=== PATIENT | male | born 1945 | race Caucasian/White ===

== ENCOUNTER 2017-11-02 07:43 | Inpatient (IN) | payer MEDICARE ==
[~2017-11-02] VITALS: Ht 182.9 cm; Wt 89.9 kg
[2017-11-02] VITALS (12 sets, daily range): BP systolic 100–180; BP diastolic 60–100
[2017-11-02 08:00] LABS: BASOPHILS % (AUTO) 0.3 % (0.0-5.0); EOSINOPHILS % (AUTO) 1.6 % (0.0-8.0); HEMATOCRIT 51.3 % (42-54); LYMPHOCYTES % (AUTO) 17.8 % (21.0-51.0); MEAN CORPUSCULAR HEMOGLOBIN 32.1 pg (27.0-33.0); MEAN CORPUSCULAR HGB CONC 35.2 g/dL (32.0-36.0); MEAN CORPUSCULAR VOLUME 91.2 fL (79-99); NEUTROPHILS % (AUTO) 71.3 % (40.0-77.0); NUCLEATED RED BLOOD CELLS 0.1 % (0.0-0.19); PLATELET COUNT (AUTO) 165 K/uL (130-400); RED BLOOD CELL COUNT(AUTO) 5.63 MIL/uL (4.50-6.20); RED CELL DISTRIBUTION WIDTH 13.6 % (11.0-15.5); WHITE BLOOD COUNT (AUTO) 7.6 K/uL (4.8-10.8)
[2017-11-02 08:17] LABS: PARTIAL THROMBOPLASTIN TIME 26.1 SEC (26.3-35.5); PROTHROMBIN TIME 10.5 SEC (9.6-11.6)
[2017-11-02 08:22] LABS: CREATININE 1.2 mg/dL (0.5-1.5); POTASSIUM 4.3 mmol/L (3.5-5.1)
[2017-11-02 08:36] LABS: ALBUMIN 4.5 g/dL (3.5-5.0); BILIRUBIN,TOTAL 1.7 mg/dL (0.2-1.0); CREATINE KINASE MB 31.2 ng/mL (0.5-3.6); TOTAL PROTEIN, SERUM 8.5 g/dL (6.0-8.3)
[2017-11-02] MEDS ORDERED: ASPIRIN 325 MG TABLET ONE (08:39)
[2017-11-02] MEDS ORDERED: IOPAMIDOL-370 100 ML VIAL IV ONE ×2 (10:48→10:58)
[2017-11-02] MEDS ORDERED: BIVALIRUDIN 250 MG/VIAL IV ONE (10:48)
[2017-11-02] MEDS ORDERED: ISOVUE-370 50ML VIAL IV ONE (10:49)
[2017-11-02] MEDS ORDERED: LIDOCAINE HCL 2% 20ML ONE (10:49)
[2017-11-02] MEDS ORDERED: NITROGLYCERIN 5 MG/ML 10 ML VIAL IV ONE (10:58)
[2017-11-02] MEDS ORDERED: NITROGLYCERIN 50 MG/D5% WATER 1 BOT ONE (12:25)
[2017-11-02] MEDS ORDERED: MORPHINE SULFATE 2 MG/ML 1ML SYG ONE (12:30)
[2017-11-02] MEDS ORDERED: METOPROLOL TARTRATE 1 MG/ML 5ML VIAL IV ONE (12:30)
[2017-11-02] MEDS ORDERED: ATROPINE SULFATE 0.1 MG/ML 10 ML SYG IVP ONE (12:34)
[2017-11-02] MEDS ORDERED: TICAGRELOR 90 MG TABLET ONE (12:40)
[2017-11-02] MEDS ORDERED: VERAPAMIL HCL 2.5 MG/ML VIAL IVP ONE (12:43)
[2017-11-02] MEDS ORDERED: ADENOSINE 3 MG/ML 2ML VIAL IV ONE (12:46)
[2017-11-02] MEDS ORDERED: SODIUM CHLORIDE 0.9% 1000ML 1,000 ML IV SCH (13:09)
[2017-11-02] MEDS ORDERED: ONDANSETRON HCL 4 MG/2 ML VIAL IVP SCH (13:15)
[2017-11-02] MEDS ORDERED: MORPHINE SULFATE 5 MG/ML VIAL IVP SCH ×2 (13:15)
[2017-11-02] MEDS ORDERED: LOSARTAN 50 MG TABLET PO SCH (13:15)
[2017-11-02] MEDS ORDERED: ACETAMINOPHEN-CODEINE 300/30MG TAB PO PRN (13:15)
[2017-11-02] MEDS ORDERED: NITROGLYCERIN 50 MG/D5% WATER 1 BOT IV PRN (13:15)
[2017-11-02] MEDS ORDERED: [UNRECOGNIZED DRUG - CODE] IM (14:35)
[2017-11-02] MEDS: CARVEDILOL 6.25 MG TABLET PO SCH ×2 (14:35→23:06)
[2017-11-02] MEDS: TICAGRELOR 90 MG TABLET PO SCH (20:26)
[2017-11-02] MEDS: ATORVASTATIN CALCIUM 40 MG TABLET PO SCH (20:26)
[2017-11-02 21:22] LABS: CREATINE KINASE MB 55.6 ng/mL (0.5-3.6)
[2017-11-02 21:23] LABS: TROPONIN I 8.38 ng/mL (0.00-0.06)
[2017-11-03] VITALS (15 sets, daily range): BP systolic 88–128; BP diastolic 46–67
[2017-11-03 04:01] LABS: HEMATOCRIT 43.7 % (42-54); MEAN CORPUSCULAR HEMOGLOBIN 32.3 pg (27.0-33.0); MEAN CORPUSCULAR HGB CONC 35.7 g/dL (32.0-36.0); MEAN CORPUSCULAR VOLUME 90.3 fL (79-99); NUCLEATED RED BLOOD CELLS 0.1 % (0.0-0.19); PLATELET COUNT (AUTO) 155 K/uL (130-400); RED BLOOD CELL COUNT(AUTO) 4.83 MIL/uL (4.50-6.20); RED CELL DISTRIBUTION WIDTH 13.1 % (11.0-15.5); WHITE BLOOD COUNT (AUTO) 9.2 K/uL (4.8-10.8)
[2017-11-03 04:32] LABS: CREATINE KINASE MB 43.8 ng/mL (0.5-3.6); CREATININE 1.3 mg/dL (0.5-1.5); POTASSIUM 3.9 mmol/L (3.5-5.1)
[2017-11-03 04:35] LABS: TROPONIN I 8.14 ng/mL (0.00-0.06)
[2017-11-03] MEDS ORDERED: CARVEDILOL 3.125 MG TABLET PO SCH (09:15)
[2017-11-03] MEDS: TICAGRELOR 90 MG TABLET PO SCH ×2 (09:48→19:38)
[2017-11-03] MEDS: ASPIRIN 81MG TAB.CHEW PO SCH (09:48)
[2017-11-03] MEDS: PANTOPRAZOLE SODIUM 40 MG TABLET.DR PO SCH (09:50)
[2017-11-03] MEDS ORDERED: BISACODYL 5 MG TABLET.DR PO SCH (11:00)
[2017-11-03] MEDS: DOCUSATE SODIUM 100 MG CAP PO SCH ×2 (11:23→19:38)
[2017-11-03] MEDS: ATORVASTATIN CALCIUM 40 MG TABLET PO SCH (19:38)
[2017-11-03] MEDS: METOPROLOL TARTRATE 25 MG TAB PO SCH (19:39)
[2017-11-04] VITALS (7 sets, daily range): BP systolic 108–126; BP diastolic 55–87
[2017-11-04] MEDS: METOPROLOL TARTRATE 25 MG TAB PO SCH ×2 (09:52→21:55)
[2017-11-04] MEDS: DOCUSATE SODIUM 100 MG CAP PO SCH ×2 (09:52→21:55)
[2017-11-04] MEDS: TICAGRELOR 90 MG TABLET PO SCH ×2 (09:52→21:55)
[2017-11-04] MEDS: ASPIRIN 81MG TAB.CHEW PO SCH (09:52)
[2017-11-04] MEDS: LISINOPRIL 2.5 MG TABLET PO SCH (09:52)
[2017-11-04] MEDS: PANTOPRAZOLE SODIUM 40 MG TABLET.DR PO SCH (09:52)
[2017-11-04] MEDS: POLYETHYLENE GLYCOL 3350 17 GM POWD.PACK PO SCH (09:53)
[2017-11-04] MEDS: ATORVASTATIN CALCIUM 40 MG TABLET PO SCH (21:55)
[2017-11-05 03:33] VITALS: BP 122/70
[2017-11-05 04:21] LABS: HEMATOCRIT 40.3 % (42-54); MEAN CORPUSCULAR HEMOGLOBIN 32.4 pg (27.0-33.0); MEAN CORPUSCULAR HGB CONC 36.4 g/dL (32.0-36.0); MEAN CORPUSCULAR VOLUME 89.2 fL (79-99); PLATELET COUNT (AUTO) 144 K/uL (130-400); RED BLOOD CELL COUNT(AUTO) 4.52 MIL/uL (4.50-6.20); RED CELL DISTRIBUTION WIDTH 13.3 % (11.0-15.5); WHITE BLOOD COUNT (AUTO) 5.9 K/uL (4.8-10.8)
[2017-11-05 04:35] LABS: CREATININE 1.3 mg/dL (0.5-1.5); POTASSIUM 3.9 mmol/L (3.5-5.1)
[2017-11-05 07:00] VITALS: BP 124/61
[2017-11-05] MEDS: ASPIRIN 81MG TAB.CHEW PO SCH (08:07)
[2017-11-05] MEDS: POLYETHYLENE GLYCOL 3350 17 GM POWD.PACK PO SCH (08:07)
[2017-11-05] MEDS: DOCUSATE SODIUM 100 MG CAP PO SCH (08:07)
[2017-11-05] MEDS: METOPROLOL TARTRATE 25 MG TAB PO SCH (08:07)
[2017-11-05] MEDS: PANTOPRAZOLE SODIUM 40 MG TABLET.DR PO SCH (08:07)
[2017-11-05] MEDS: LISINOPRIL 2.5 MG TABLET PO SCH (08:07)
[2017-11-05] MEDS: TICAGRELOR 90 MG TABLET PO SCH (08:07)
[2017-11-05] MEDS ORDERED: LISI2.5T2 PO (09:45)
[2017-11-05] MEDS ORDERED: ATOR40TA69 PO (09:45)
[2017-11-05] MEDS ORDERED: TICA90TA PO (09:45)
[2017-11-05] MEDS ORDERED: METO25 PO (09:45)
[2017-11-05] MEDS ORDERED: ASPI-1005 PO (09:45)
[2017-12-04] MEDS ORDERED: TESTOSTERONE CYPIONATE 200 MG IM SCH (09:00)
[2017-12-05] MEDS ORDERED: TESTOSTERONE CYPIONATE 200 MG PO SCH (09:00)
== END 2017-11-05 10:52 | disposition home or self-care (01) | DRG 246 ==
LOC: EDH 07:43 → EDHIP 12:42 → OBSVTOIN 12:42 → 2BH 14:14 → 2CH 19:53 → 2AH 11-03 12:58
PROVIDERS: ADMIT Family Medicine; ATTEND Family Medicine
PROC: B2151ZZ Fluoroscopy of Left Heart using Low Osmolar Contrast (ICD-10-PCS; principal; 2017-11-02)
PROC: 027034Z Dilation of Coronary Artery, One Artery with Drug-eluting Intraluminal Device, Percutaneous Approach (ICD-10-PCS; 2017-11-02)
PROC: B2111ZZ Fluoroscopy of Multiple Coronary Arteries using Low Osmolar Contrast (ICD-10-PCS; 2017-11-02)
PROC: 4A023N7 Measurement of Cardiac Sampling and Pressure, Left Heart, Percutaneous Approach (ICD-10-PCS; 2017-11-02)
PROC: 3E073GC Introduction of Other Therapeutic Substance into Coronary Artery, Percutaneous Approach (ICD-10-PCS; 2017-11-02)
DX: I21.4 Non-ST elevation (NSTEMI) myocardial infarction (principal); I50.41 Acute combined systolic (congestive) and diastolic (congestive) heart failure; I95.9 Hypotension, unspecified; I11.0 Hypertensive heart disease with heart failure; I25.110 Atherosclerotic heart disease of native coronary artery with unstable angina pectoris; E78.5 Hyperlipidemia, unspecified; N40.0 Benign prostatic hyperplasia without lower urinary tract symptoms; I24.9 Acute ischemic heart disease, unspecified; K29.70 Gastritis, unspecified, without bleeding; K58.9 Irritable bowel syndrome, unspecified; Z88.1 Allergy status to other antibiotic agents; Z82.49 Family history of ischemic heart disease and other diseases of the circulatory system
CPT/HCPCS: 36415; 71045; 80048; 80053; 80061; 82550; 82553; 83874; 83880; 84484; 85025; 85027; 85610; 85730; 93005; 93458; 99291; A4357; C1725; C1760; C1769; C1887; C1894; C9600; J0153; J0461; J0583; J1644; J3490; J7030; Q9967

== ENCOUNTER → 2020-08-13 | Outpatient (CLI) | payer MEDICARE ==
[~2020-08-13] MED LIST: ASPI-1005 PO; ATOR40TA69 PO; LISI2.5T2 PO; METO25 PO; REGADENOSON 0.4 MG/5 ML PF SYG IVP SCH; TICA90TA PO; [UNRECOGNIZED DRUG - CODE] IM
== END | disposition home or self-care (01) ==
LOC: SHCH 08:14
PROVIDERS: ATTEND Internal Medicine Cardiovascular Disease
DX: I25.2 Old myocardial infarction (principal)
CPT/HCPCS: 78452; 93017; 96374; A9500 ×2; J2785

== ENCOUNTER 2024-08-31 07:47 | Emergency (ER) | payer MEDICARE ==
[~2024-08-31] VITALS: Ht 182.9 cm; Wt 86.2 kg
[~2024-08-31 07:47] MED LIST changes: +LISI2.5T13 PO; -LISI2.5T2 PO; -REGADENOSON 0.4 MG/5 ML PF SYG IVP SCH
--- NOTE | 2024-08-31 08:06 | EKG ---
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
[2024-08-31 08:18] LABS: BASOPHILS # (AUTO) 0.02 K/uL (0.00-0.20); BASOPHILS % (AUTO) 0.2 % (0.0-5.0); EOSINOPHILS # (AUTO) 0.12 K/uL (0.00-0.70); EOSINOPHILS % (AUTO) 1.5 % (0.0-8.0); HEMATOCRIT 42.5 % (42-54); IMMATURE GRANULOCYTE ABSOLUTE 0.02 K/uL (0-1); LYMPHOCYTES # (AUTO) 0.7 K/uL (1.0-4.8); MEAN CORPUSCULAR HEMOGLOBIN 31.4 pg (27.0-33.0); MEAN CORPUSCULAR HGB CONC 34.6 g/dL (32.0-36.0); MEAN CORPUSCULAR VOLUME 90.8 fL (79-99); MONOCYTES # (AUTO) 0.6 K/uL (0.1-1.0); MONOCYTES % (AUTO) 7.9 % (3.0-13.0); NEUTROPHILS # (AUTO) 6.6 K/uL (1.8-7.7); NEUTROPHILS % (AUTO) 82.2 % (40.0-77.0); PLATELET COUNT (AUTO) 117 K/uL (130-400); RED BLOOD CELL COUNT(AUTO) 4.68 MIL/uL (4.50-6.20); RED CELL DISTRIBUTION WIDTH 11.9 % (11.0-15.5); WHITE BLOOD COUNT (AUTO) 8.1 K/uL (4.8-10.8)
[2024-08-31 08:24] LABS: CREATININE 1.1 mg/dL (0.5-1.3); POTASSIUM 4.4 mmol/L (3.5-5.1)
[2024-08-31 08:29] LABS: ALBUMIN 3.7 g/dL (3.5-5.0); BILIRUBIN,DIRECT 0.1 mg/dL (0.0-0.3); BILIRUBIN,TOTAL 1.1 mg/dL (0.2-1.0); TOTAL PROTEIN, SERUM 6.7 g/dL (6.0-8.3)
[2024-08-31 08:41] LABS: B-TYPE NATRIURETIC PEPTIDE 21 pg/mL (0-100)
--- NOTE | 2024-08-31 08:41 | HMCIMG ---
CHEST 1VW HISTORY: Chest pain COMPARISON: 08/20/2023 FINDINGS: A frontal projection of the chest was obtained. No acute pulmonary infiltrates is seen. The heart is borderline enlarged. Degenerative changes are seen. Aortic calcifications are seen. IMPRESSION: 1. No acute pulmonary infiltrate is seen.
--- NOTE | 2024-08-31 09:26 | ERN ---
ED Note History of Present Illness Stated Complaint: CHEST PAIN X 2 DAYS Chief Complaint: Chest Pain Time Seen by MD: 07:48 Dictation: 79-year-old male presents to the ED for evaluation of chest pain onset 2 days ago. Patient reports pressure like pain, but denies any SOB or other associated symptoms at this time. Patient has history of PR and cardiac stents. Allergies: Coded Allergies: clarithromycin (Unverified Allergy, Unknown, 11/02/17) doxycycline (Unverified Allergy, Unknown, 11/02/17) Home Meds Active Scripts Atorvastatin Calcium (LIPITOR) 40 Mg Tablet, 40 MG PO HS, #30 TAB Prov:SELENE LOCKE MD 11/05/17 Lisinopril (Lisinopril) 2.5 Mg Tablet, 2.5 MG PO DAILY, #30 TAB Prov:SELENE LOCKE MD 11/05/17 Ticagrelor (Brilinta) 90 Mg Tablet, 90 MG PO BID, #60 TAB Prov:SELENE LOCKE MD 11/05/17 Metoprolol Tartrate (Lopressor) 25 Mg Tab, 12.5 MG PO BID, #60 TAB Prov:SELENE LOCKE MD 11/05/17 Aspirin (ASPIRIN 81MG CHEW TAB) 81 Mg Tab.chew, 81 MG PO DAILY, #30 TAB.CHEW Prov:SELENE LOCKE MD 11/05/17 Reported Medications Testosterone Cypionate (Depo-Testosterone) 200 Mg/1 Ml Vial, 200 MG IM QMONTH, VIAL 11/02/17 Past Medical History Past Medical History: PR Surgical History: Other Surgical History Other: CARDIAC STENTS Review of System Dictation Constitutional: Negative for fever,chills, and weight loss Eyes: Negative for injury, pain,redness, and discharge ENT: Negative for injury,pain or swelling Cardiovascular: Positive for chest pain negative for palpitations, and edema Respiratory: Negative for shortness of breath, cough, and wheezing, Abdomen/GI: Negative for abdominal pain, nausea, vomiting, diarrhea, and constipation Back: Negative for injury and pain : Negative for injury, bleeding and discharge MS/Extremity: Negative for injury and deformity Skin: Negative for rash, and discoloration Neuro: Negative for headache, weakness, numbness, tingling, and seizure Psych: Negative for suicide ideation, homicidal ideation, and hallucinations Initial Vital Sign VS Vital Signs Date Time Temp Pulse Resp B/P (MAP) Pulse Ox O2 Delivery O2 Flow Rate FiO2 08/31/24 07:52 98.1 68 20 122/73 99 Room Air 0 08/31/24 09:17 21 Physical Exam Dictation General: awake, alert, NAD Head/Face: Normocephalic, atraumatic Eyes: PERRL, EOMI, vision at baseline ENT: oral cavity clear, TMs clear, no signs of infection Neck: Trachea midline, supple, no nuchal rigidity Cardiovascular: RRR, normal S1/S2, No MRGs, no JVD Respiratory: CTAB, no respiratory distress, No rales or wheezes Abdomen: Soft, non-tender, non-distended, normal bowel sounds, no guarding or rebound. Skin: Warm, dry, normal turgor, no rash MS/Extremity: Pulses equal, no cyanosis, neurovascular intact, FROM Neuro: COAx4, GCS 15, strength 5/5, CN 2-12 intact, normal cerebellar exam, normal gait, Psych: Normal behavior, mood, and affect normal Results (Laboratory/Radiology) Laboratory/Radiology Laboratory Tests Test 08/31/24 08:09 08/31/24 09:17 White Blood Count 8.1 K/uL (4.8-10.8) Red Blood Count 4.68 MIL/uL (4.50-6.20) Hemoglobin 14.7 g/dL (14.0-18.0) Hematocrit 42.5 % (42-54) Mean Corpuscular Volume 90.8 fL (79-99) Mean Corpuscular Hemoglobin 31.4 pg (27.0-33.0) Mean Corpuscular Hemoglobin Concent 34.6 g/dL (32.0-36.0) Red Cell Distribution Width 11.9 % (11.0-15.5) Platelet Count 117 K/uL (130-400) L Mean Platelet Volume 11.7 fL (7.5-10.5) H Immature Granulocyte % (Auto) 0.2 % (0-1) Neutrophils (%) (Auto) 82.2 % (40.0-77.0) H Lymphocytes (%) (Auto) 8.0 % (21.0-51.0) L Monocytes (%) (Auto) 7.9 % (3.0-13.0) Eosinophils (%) (Auto) 1.5 % (0.0-8.0) Basophils (%) (Auto) 0.2 % (0.0-5.0) Neutrophils # (Auto) 6.6 K/uL (1.8-7.7) Lymphocytes # (Auto) 0.7 K/uL (1.0-4.8) L Monocytes # (Auto) 0.6 K/uL (0.1-1.0) Eosinophils # (Auto) 0.12 K/uL (0.00-0.70) Basophils # (Auto) 0.02 K/uL (0.00-0.20) Absolute Immature Granulocyte (auto 0.02 K/uL (0-1) Nucleated Red Blood Cells 0.0 % (0.0-0.19) White Cell Morphology Comment See comments Sodium Level 143 mmol/L (136-145) Potassium Level 4.4 mmol/L (3.5-5.1) Chloride Level 107 mmol/L (101-111) Carbon Dioxide Level 33 mmol/L (21-32) H Blood Urea Nitrogen 19 mg/dL (7-18) H Creatinine 1.1 mg/dL (0.5-1.3) Glomerular Filtration Rate Calc 69 mL/min (>90) Random Glucose 124 mg/dL (70-105) H Total Calcium 9.1 mg/dL (8.5-10.1) Total Bilirubin 1.1 mg/dL (0.2-1.0) H Direct Bilirubin 0.1 mg/dL (0.0-0.3) Aspartate Amino Transf (AST/SGOT) 19 U/L (10-37) Alanine Aminotransferase (ALT/SGPT) 22 U/L (12-78) Alkaline Phosphatase 67 U/L (50-136) Troponin I High Sensitivity 4 ng/L (4-75) 5 ng/L (4-75) B-Type Natriuretic Peptide 21 pg/mL (0-100) Total Protein 6.7 g/dL (6.0-8.3) Albumin 3.7 g/dL (3.5-5.0) Labs Reviewed?: Yes EKG Comment: EKG 08/31/2024 time 7:59 a.m. ventricular rate 63, SD 166, QRS D 74, QT 426. Sinus rhythm, supraventricular bigeminy, low voltage, extremity leads. No STEMI ED Course ED Course Orders Procedure Category Date Status Time 12 Lead Ekg Tracing- EKG 08/31/24 Resulted Technical 07:48 Cbc With Differential LAB 08/31/24 Complete 07:48 Hepatic Function Panel LAB 08/31/24 Complete 07:48 Basic Metabolic Panel LAB 08/31/24 Complete 07:48 B-Type Natriuretic LAB 08/31/24 Complete Peptide 07:48 Troponin I High LAB 08/31/24 Complete Sensitivity 07:48 Chest 1vw RAD 08/31/24 Resulted 07:48 Troponin I High LAB 08/31/24 Complete Sensitivity 09:11 Vital Signs Date Time Temp Pulse Resp B/P (MAP) Pulse Ox O2 Delivery O2 Flow Rate FiO2 08/31/24 09:17 59 14 102/57 99 Room Air* 0 21 08/31/24 07:52 98.1 68 20 122/73 99 Room Air 0 HEART Score Response (Comments) Value History: Moderate suspicion (+1) 1 EKG: Normal 0 Age: > 65yrs (+2) 2 Risk Factors: 1-2 risk factors (+1) 1 Initial Troponin: Normal limit (0) 0 HEART Score Risk: Mod Risk for MACE (4-6) Total 4 Medical Decision Making MDM MDM: Differential diagnosis: Chest pain, atypical chest pain Rationale: Tests considered and ordered secondary to shared decision making include: labs, ECG and radiology Previous outside records reviewed: Old ER visits. Risk of complication and/or morbidity or mortality of patient management: None Medications-Per medication reconciliation Need for hospitalization: Patient does not meet criteria for hospitalization. Need for emergency major/minor surgery: No Patient's prior external medical records from other ER visits were reviewed by me as indicated. Prior testing and results from previous visits were reviewed. Prior tests were taken into account with medical decision making and resource utilization, independent historian/historians were used to obtain complete medical history. I independently interpreted the test that were performed, results were reviewed by me and considered findings on radiology if ordered. Medical management and examination interpretation discussions were had by me with other qualified healthcare professionals as indicated for the patient's care. 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 Patient prefers workup to be performed in an outpatient setting and denies any chest pain at this time. Patient will be discharged and was told to return to the ED for worsening symptoms. DX & DISP Disposition: Discharge Departure Impression: Primary Impression: Chest pain Condition: Stable Referrals: HAILEY MAS MD (PCP) I have reviewed, & agreed with my scribe's, documentation. (Entered by Amber Mccarthy, acting as a scribe for Dr. Anthony) I personally scribed for CATIA ANTHONY MD ([email or web address]) on 08/31/24 at 09:26. Electronically submitted by Amber Mccarthy ([email or web address]). CATIA ANTHONY MD Aug 31, 2024 09:26
[2024-08-31 11:01] VITALS: BP 115/62; PULSE 61; RESP 16; TEMP 98.1; O2SAT 96
== END 2024-08-31 11:40 | disposition home or self-care (01) ==
LOC: EDH 07:47
DX: R07.89 Other chest pain (principal); I25.2 Old myocardial infarction; Z79.02 Long term (current) use of antithrombotics/antiplatelets; Z79.82 Long term (current) use of aspirin; Z79.899 Other long term (current) drug therapy; Z88.1 Allergy status to other antibiotic agents; Z95.5 Presence of coronary angioplasty implant and graft
CPT/HCPCS: 36415; 71045; 80048; 80076; 83880; 84484; 85025; 93005; 99284